=== PATIENT | male | born 1930 | race Caucasian/White ===

== ENCOUNTER → 2016-11-08 | Outpatient (CLI) | payer OTHER, MEDICARE | LOC: RAD 12:24 | DX: J44.9 Chronic obstructive pulmonary disease, unspecified (principal) ==

== ENCOUNTER → 2017-01-10 | Outpatient (CLI) | payer OTHER, MEDICARE | LOC: NUC 12-23 13:57 | DX: I25.10 Atherosclerotic heart disease of native coronary artery without angina pectoris (principal) ==

== ENCOUNTER → 2017-11-02 | Outpatient (CLI) | payer OTHER, MEDICARE ==
[~2017-11-02] VITALS: Ht 170.2 cm; Wt 68.0 kg
[~2017-11-02] MED LIST: ALIGN4 MG PO; ALLEGRA ALLERG180 MG PO; ALLOPURINOL 10100 M1 PO; ASPIR 8181 MG PO; CEFDINIR300 MG PO; CLOTRIMAZOLE10 MG PO; COMBIVENT RESPIM4 GM INH; DOXYCYCLINE 10100 MG PO; EUCERIN CALM I200 M1 TOP; FLAX SEED OIL1000 MG PO; FLUNISOLIDE25 ML NASAL; FORMOTEROL FUMAR1 GM PO; GLUCOSAMINE HC500 MG PO; KEFLEX250 MG PO; KETOROLAC 0.5% E5 ML OPHTHALMIC; LAMISIL250 MG PO; MAGOX 400400 MG PO; MIRALAX17 GM PO; NICOTINE TRANSD14 M1 TRANSDERM; NORVASC2.5 MG PO; OCUVITE TABLET1 EAC1 PO; PRAVACHOL40 MG PO; PREDNISONE 10 M10 MG PO; PRESERVISION A1 EAC2 PO; PRILOSEC 20 MG20 MG PO; PROAIR HFA8.5 GM INH; REMERON15 MG PO; SEA-OMEGA 30 C1 EACH PO; SENOKOT8.6 MG PO; SINGULAIR 10 MG10 M1 PO; STOOL SOFTENER100 M1 PO; SYSTANE 0.3-0.415 ML OPHTHALMIC; TEMOVATE15 GM TOP; TRAZODONE HCL50 MG PO; VITAMIN B-12500 MCG PO; VITAMIN D3400 UNIT PO; XALATAN2.5 ML OPHTHALMIC; ZANTAC 150MG T150 MG PO; ZOCOR20 MG PO; [UNRECOGNIZED DRUG - REMARK] PO
--- NOTE | ~2017-11-02 | P ---
[facility] [place] [address] PROCEDURE REPORT Name: ORQUIDEA RUELAS Room #: REG [facility].#: [id number] Admission: 11/02/17 Attend Phys: Felix Hill Discharge: Date of : 32 Report #: [id number] THIS REPORT FOR: //name// CC: Felix Boyce MD DATE OF SERVICE: 11/02/2017 PROCEDURE PERFORMED: Colonoscopy with biopsies. HISTORY OF PRESENT ILLNESS: The patient is an 86-year-old male with a history of anemia, recent drop in his hemoglobin. No obvious bright red blood per rectum or melena. Stool hemoccult testing x 1 is negative. Other Hemoccult testing is pending at this time. Upper endoscopy was just performed, which showed a mild gastritis, but no stigmata of bleeding. DESCRIPTION OF PROCEDURE: The risks and benefits of the procedure were explained to the patient, those risks including but not limited to bleeding, perforation, and the risk of sedation. He understood these risks and gave informed consent. Sedation was given using propofol per anesthesia. Next, a digital rectal exam was initially performed, which was normal. Next, using a standard Fujinon colonoscope, the scope was placed in the patient's anus and advanced under direct vision to the cecum. The overall prep was good. Cecum and ileocecal valve were normal in appearance. In the ascending colon, a 4 mm sessile polyp was noted. This was removed with cold forceps, otherwise normal. In the transverse colon, a 5 mm sessile polyp also removed with cold forceps. Multiple diverticula were noted throughout the descending and sigmoid colon. No evidence of inflammation or stigmata of recent bleeding. The rectal mucosa was normal. On retroflexion, small nonbleeding internal hemorrhoids were noted. The scope was then withdrawn and the procedure terminated. The patient tolerated the procedure well. IMPRESSION: 1. Two small colonic polyps. 2. Left-sided diverticulosis, no signs of bleeding. 3. Small internal hemorrhoids, no bleeding. 4. Otherwise, normal colonoscopy. RECOMMENDATIONS: 1. Await biopsy results. 2. There was no stigmata of bleeding on EGD or colonoscopy today. Recommend to finish a Hemoccult testing of stool. If negative and biopsies are negative for celiac disease, would consider Hematology consult at that point. If any of the stool Hemoccult testing is positive, we will consider M2 capsule. [address] [address] PROCEDURE REPORT Name: ORQUIDEA RUELAS ANEUDY Room #: REG [facility]#: [id number] Admission: 11/02/17 Attend Phys: Felix Hill Discharge: Date of : 32 Report #: [id number] Thank you for allowing me to participate in his care. <ELECTRONICALLY SIGNED> By: Felix Hewitt MD 11/04/17 0804 1141 1409 Felix Hewitt MD /iwona
--- NOTE | ~2017-11-02 | P ---
[facility] [place] [address] PROCEDURE REPORT Name: ORQUIDEA RUELAS Room #: REG [facility].#: [id number] Admission: 11/02/17 Attend Phys: Felix Hill Discharge: Date of : 32 Report #: [id number] THIS REPORT FOR: //name// CC: Felix Boyce MD DATE OF SERVICE: 11/02/2017 PROCEDURE PERFORMED: Upper endoscopy with biopsies and esophageal dilation. HISTORY OF PRESENT ILLNESS: The patient is an 86-year-old male with a history of anemia. Hemoccult testing of stool x 1 is negative; however, he has had a drop in his hemoglobin. No obvious bright red blood per rectum or melena. He does report dysphagia at times. He is taking PPI therapy for reflux, which is well controlled. Plan is for EGD and colonoscopy today. DESCRIPTION OF PROCEDURE: The risks and benefits of the procedure were explained to the patient. Those risks including but not limited to bleeding, perforation, the risk of sedation. He understood these risks and gave informed consent. Sedation was given using propofol per anesthesia. Next, using a standard True Officen upper endoscope, the scope was placed in the patient's mouth and advanced under direct vision through the esophagus, stomach and into the second portion of the duodenum. The esophagus was normal throughout. The GE junction was normal. There was a mild gastritis noted in the stomach. No evidence of erosions or ulcerations. No bleeding was noted throughout the exam today. Biopsies were obtained to rule out H. pylori. The pylorus was normal and patent. The duodenal bulb, first and second portion were all normal. Biopsies were also obtained to rule out the possibility of celiac sprue. The scope was then brought back up into the patient's stomach and a Savary guidewire was inserted through the scope, leaving the guidewire in place. Next, a 48-Spanish Savary dilation of the esophagus was then performed without difficulty. The wire and dilator removed. The scope was reintroduced into the patient's stomach. There was no evidence of mucosal tear after dilation. The scope was then withdrawn and the procedure terminated. The patient tolerated the procedure well. IMPRESSION: 1. Mild gastritis. 2. Otherwise, normal upper endoscopy. RECOMMENDATIONS: 1. Await biopsy results. 2. Observe patient post-dilation. 3. Continue PPI therapy. 4. We will proceed with colonoscopy next today. [address] [address] PROCEDURE REPORT Name: ORQUIDEA RUELAS Room #: REG [facility]atha#: [id number] Admission: 11/02/17 Attend Phys: Felix Hill Discharge: Date of : 32 Report #: [id number] Thank you for allowing me to participate in his care. <ELECTRONICALLY SIGNED> By: Felix Hewitt MD 11/04/17 0804 1114 1359 Felix Hewitt, /nt
--- NOTE | ~2017-11-02 | S ---
[facility] [place] [address] SURGICAL PATH RPT PROCEDURE Name: BRUNO RUELAS [id number] Admission: 11/02/17 Date of : 32 Discharge: Report #: [id number] Path Case #: [id number] PATHOLOGY REPORT COLLECTION DATE: 11/02/2017 RECEIVED DATE: 11/02/2017 SUBMITTING PHYS: Dr. Felix Hewitt OTHER PHYS: Dr. Manuel Boyce SPECIMEN(S) RECEIVED: A.Duodenum B.Gastritis C.Cecal polyp D.Transverse polyp * * * * * * * * * * * * FINAL DIAGNOSIS: A. Small bowel mucosa, duodenum, endoscopic biopsy: - Focal fundic-type metaplasia along with mild inflammation compatible with mild active peptic duodenitis. - Negative for villous blunting or increase in intraepithelial lymphocytes. B. Gastric mucosa, gastritis, endoscopic biopsy: - Mild chronic inflammation. - Negative for intestinal metaplasia or atrophy. - Negative for Helicobacter pylori. C. Polyp, at cecum, endoscopic biopsy: - Tubular adenoma. - Negative for high grade dysplasia. D. Polyp x 2, at transverse colon, endoscopic biopsy: - Tubular adenoma identified in two fragments. - Negative for high grade dysplasia. COMMENT: Well controlled Helicobacter pylori immunohistochemical stain performed on block B1 - negative. (IUV:db; 11/03/2017) PATHOLOGIST: Diane Pina M.D. REPORT ELECTRONICALLY SIGNED BY: Diane Pina M.D. DATE/TIME: 11/03/2017 14:51 * * * * * * * * * * * * GROSS PATHOLOGY: A. The specimen is received in formalin, labeled "Bruno Mercado, BX of duodenum" and consists of 4 soft rose tissue fragment [facility] [address] [place] [address] SURGICAL PATH RPT PROCEDURE Name: LULUBRUNO WILKS Room #: REG [facility].#: [id number] Admission: 11/02/17 Date of : 32 Discharge: Report #: [id number] Path Case #: [id number] ranging in size from 0.2 cm-0.4 cm. They are entirely submitted as A1. B. The specimen is received in formalin, labeled ""Bruno Mercado, BX of gastritis" and consists of 4 soft rose tissue fragments each averaging 0.3 cm. There are entirely submitted as B1. C. The specimen is received in formalin, labeled "Bruno Mercado, polyp at cecum" and consists of a 0.3 cm soft rose tissue fragment. Totally submitted as C1. D. The specimen is received in formalin, labeled "Bruno Mercado, polyp at transverse colon at 2" and consists of 2 soft rose tissue rings each averaging 0.2 cm. There are entirely submitted as D1. (DIOR; 11/02/2017) CLINICAL HISTORY: History anemia Dysphagia INITIAL CPT CODE(S): A; 56795 B; 15046, 06157 C; 23741 D; 99214 Professional services performed by [facility] at [facility] [address], [place] [address] Technical services performed by [facility] at [address] [place] [address], [facility] [address], [place] [address]. [facility] [address] [place] [address] PHONE: [phone] DIRECTOR: Matthew Parisi M.D. * * * END OF REPORT * * *
== END | disposition home or self-care (01) ==
LOC: GI 08:55
DX: D12.0 Benign neoplasm of cecum (principal); D12.3 Benign neoplasm of transverse colon; K29.50 Unspecified chronic gastritis without bleeding; K29.80 Duodenitis without bleeding; K57.30 Diverticulosis of large intestine without perforation or abscess without bleeding; K64.8 Other hemorrhoids; K21.9 Gastro-esophageal reflux disease without esophagitis; I10 Essential (primary) hypertension; J43.9 Emphysema, unspecified; I25.2 Old myocardial infarction; E78.5 Hyperlipidemia, unspecified; M10.9 Gout, unspecified; N40.0 Benign prostatic hyperplasia without lower urinary tract symptoms; Z85.46 Personal history of malignant neoplasm of prostate; Z98.890 Other specified postprocedural states; Z88.0 Allergy status to penicillin; Z87.891 Personal history of nicotine dependence; Z91.040 Latex allergy status; Z79.82 Long term (current) use of aspirin; Z79.899 Other long term (current) drug therapy
CPT/HCPCS: 62110; 62900

== ENCOUNTER 2018-05-16 14:07 | Inpatient (IN) | payer OTHER, MEDICARE ==
[~2018-05-16] VITALS: Ht 172.7 cm; Wt 71.0 kg
--- NOTE | ~2018-05-16 | HC ---
[facility] [place] [address] [place] [address] CONSULTATION Name: ORQUIDEA RUELAS Room #: 225-P ADM IN M.R.#: [id number] Admission: 05/16/18 Attend Phys: Arden Hirsch MD Discharge: Date of : 32 Report #: [id number] THIS REPORT FOR: //name// CC: Arden Boyce DATE OF SERVICE: 05/18/2018 REFERRING PHYSICIAN: Dr. Hirsch. REASON FOR REFERRAL: COPD. HISTORY OF PRESENT ILLNESS: The patient is an 87-year-old white male who presents to the Emergency Room complaining of weakness along with dyspnea. Chest x-ray on admission showed left-sided infiltrates. The patient was admitted. A pulmonary consultation was requested. The patient has normally followed in the pulmonary office by Dr. Veliz for COPD. He is felt to have severe pulmonary impairment. The patient has done fairly well over the past year. He has really not been hospitalized very much. He has also had increase in appetite and was able to gain some weight. PAST MEDICAL HISTORY: Notable for COPD, hypertension, gout, hyperlipidemia, chronic anemia, prostatic cancer, coronary artery disease with past history of myocardial infarction. PAST SURGICAL HISTORY: Notable for oral surgery, eye surgery along with TURP. ALLERGIES: AZITHROMYCIN WHICH CAUSES FACIAL SWELLING, ANAPHYLAXIS. LACTOSE CAUSED SIMILAR REACTIONS. LATEX CAUSES DYSPNEA AND RASH. MOXIFLOXACIN CAUSES FACIAL SWELLING AND ANAPHYLAXIS. PENICILLIN CAUSES SIMILAR REACTIONS. SIMVASTATIN CAUSES MUSCLE WEAKNESS. HOME MEDICATIONS: Include Xalatan, Remeron, Zyloprim, Flonase nasal spray, Pravachol, Zantac, Norvasc, nebulized albuterol. FAMILY HISTORY: Noncontributory. SOCIAL HISTORY: The patient has smoked, but quit many years ago. Denies any alcohol use. REVIEW OF SYSTEMS: As mentioned above, otherwise notable for moderate debility and weakness. [facility] [address] [place] [address] CONSULTATION Name: ORQUIDEA RUELAS Room #: 225-P [facility] IN [facility].#: [id number] Admission: 05/16/18 Attend Phys: Arden Hirsch MD Discharge: Date of : 32 Report #: [id number] PHYSICAL EXAMINATION: GENERAL: He is awake, alert, in no apparent distress. VITAL SIGNS: Temperature is 98 degrees Fahrenheit, pulse is 90, respiratory rate is 20, blood pressure 140/74 mmHg, saturation 92%. HEENT: Unremarkable. NECK: Supple. CHEST: Breath sounds are fair. Bilateral mild expiratory wheezes. Few scattered crackles in the bases. CARDIOVASCULAR: Normal S1, S2. There is no murmur or gallop. There is no JVD. There is no carotid bruit. Pulses are 2+/4+ bilaterally. ABDOMEN: Soft, nontender, no organomegaly or masses felt. GENITOURINARY: Deferred. RECTAL: Deferred. EXTREMITIES: There is no edema, cyanosis or clubbing. LABORATORY DATA: Chest x-ray shows left-sided infiltrates. Electrolytes: Sodium 140, potassium 5.0, chloride 109, CO2 is 19, BUN is 36, creatinine is 1.5. Liver enzymes are grossly unremarkable. WBC 7600, hemoglobin 11.4, platelets normal. Albumin 2.7. IMPRESSION: 1. Left-sided infiltrates, likely pneumonia. 2. Chronic obstructive pulmonary disease exacerbation. 3. Renal insufficiency. 4. Hypertension. 5. Coronary artery disease with past history of myocardial infarction. 6. Remote history of tobacco use. 7. Malnutrition, improved. Continue current care, bronchodilators, corticosteroids, and broad spectrum antibiotics. DVT and GI prophylaxis recommended. Thank you for this consultation. <ELECTRONICALLY SIGNED> By: Buddy Delgado MD 05/19/18 1830 1807 2333 Buddy Delgado MD /nt
--- NOTE | ~2018-05-16 | HC ---
[facility] [place] [address] CONSULTATION Name: ORQUIDEA RUELAS Room #: 225-P ADM IN M.R.#: [id number] Admission: 05/16/18 Attend Phys: Arden Hirsch MD Discharge: Date of : 32 Report #: [id number] THIS REPORT FOR: //name// CC: Arden Boyce DATE OF SERVICE: 05/17/2018 REASON FOR CONSULTATION: Evaluation regarding pneumonia, urinary tract infection. HISTORY OF PRESENT ILLNESS: The patient was an 87-year-old underlying history of bladder outlet obstruction requiring a suprapubic catheter last year. Resides at his home with the help of group home twice a week. In the last 4 days, he has had generalized weakness, fatigue associated with minimally productive cough. He denied any fever, chills or sweats. Some posttussive nausea without vomiting. No aspiration symptoms. No abdominal pain or diarrhea. He has had no cardiac issues. His last echocardiogram showed an EF of 55% in 2017. There has been no travel. He is a nonsmoker and no other recent exposures. Following his hospitalization yesterday, he has remained on 2 liters of oxygen per nasal cannula. Overall, feels somewhat improved. ALLERGIES: TO MULTIPLE DRUGS INCLUDING PENICILLIN, MOXIFLOXACIN, AZITHROMYCIN, LATEX, SIMVASTATIN AND LACTOSE. HE HAS BEEN ON CEPHALOSPORINS BEFORE IN 2017 WITHOUT REPORTED SIDE EFFECT. REVIEW OF SYSTEMS: He has had no weight loss or other recent infection issues. No skin lesions or rashes noted. No peripheral adenopathy noted. Cardiopulmonary as above with no increased peripheral edema. No neurologic issues. Denies any arthritis other than his baseline degenerative issues. Suprapubic catheter was exchanged last week. No allergic issues. No other hematologic issues noted. No psychiatric illnesses identified. MEDICATIONS: As noted on his OCT, having been started on meropenem. PAST MEDICAL HISTORY: Coronary artery disease status post OR, gout, hyperlipidemia, hypertension, anemia, BPH, prostate cancer, cleft palate repair, colonoscopy, gastroesophageal reflux, COPD, bilateral eye surgeries. FAMILY HISTORY: Hypertension, lung disease. SOCIAL HISTORY: Past smoker, no significant alcohol intake. PHYSICAL EXAMINATION: VITAL SIGNS: He is afebrile, hemodynamically stable. GENERAL: He was sitting up in his chair, alert, cooperative, conversant on [address] [place] [address] CONSULTATION Name: ORQUIDEA RUELASONY Room #: [address] [place] [address] IN M.R.#: [id number] Admission: 05/16/18 Attend Phys: Arden Hirsch MD Discharge: Date of : 32 Report #: [id number] liters of oxygen per nasal cannula. He was in no distress. SKIN: Without rash. LYMPHATIC: Without palpable adenopathy. HEENT: Eyes without conjunctival injection or scleral icterus. Mouth without oral lesion or mucositis. NECK: Supple, with no JVD, thyromegaly, or mass. LUNGS: Few crackles heard in the left base posteriorly without consolidation. HEART: Regular, without murmur, gallop or rub. ABDOMEN: Soft, nontender, no hepatosplenomegaly or mass appreciated. Suprapubic catheter site unremarkable. GENITOURINARY: External genitalia unremarkable with no masses, rash or ulcerations. EXTREMITIES: Without edema or cyanosis. NEUROLOGIC: Nonfocal with no cranial nerve abnormalities and strength throughout upper and lower extremities was normal. Mood was normal. LABORATORY STUDIES: Sodium 140, potassium 5, bicarbonate of 19, creatinine 1.5. Liver function test normal. Hemoglobin 11.4, platelet count 307,000, white count 7.6, 94% segs and 4% lymphs. Urinalysis with 16-25 wbc's, moderate bacteria. Blood and urine cultures are pending. Chest x-ray showed patchy pneumonia in the left lower lobe. IMAGING STUDIES: Reviewed. IMPRESSION: An 87-year-old with underlying coronary artery disease, chronic obstructive pulmonary disease, obstructive uropathy with suprapubic catheter, presents with decreased mental status and findings of a left lower lobe community-acquired pneumonia and catheter associated cystitis. He has multiple drug allergies. PLAN: Would recommend continuing IV antibiotic therapy with meropenem and screen for atypical organisms including legionella. Obtain sputum culture if the patient can produce. Follow up chest x-ray. Await urine culture and blood cultures. Continue to monitor urine output and supportive measures as needed. I have discussed with the patient's daughter at the bedside. <ELECTRONICALLY SIGNED> By: Augustine Hanson MD 05/19/18 1158 1241 1936 Augustine Hanson MD /nt
--- NOTE | ~2018-05-16 | EKG ---
[address] [address] ELECTROCARDIOGRAM REPORT Name: LULUHUEYJERELORQUIDEA Room #: 170-10 ADM IN M.R.#: [id number] Admission: 05/16/18 Attend Phys: Arden Hirsch MD Discharge: Date of : 32 Report #: [id number] THIS REPORT FOR: //name// [facility] ED Test Date: 2018-05-16 Test Time: 15:16:24 Pat Name: ORQUIDEA RUELAS Department: Room: 170 Gender: M Intake Man: joy : 1930 Requested By: Norman [place] Order Number: [id number] MD: Edgar Hurt Measurements Intervals [place] Rate: 74 P: 49 [place]: 161 QRS: -87 QRSD: 166 T: 3 QT: 414 QTc: 460 Interpretive Statements Sinus rhythm RBBB and LAFB Compared to ECG 05/31/2017 20:26:34 Left anterior fascicular block now present Right bundle-branch block now present Intraventricular conduction delay no longer present Myocardial infarct finding no longer present Electronically Signed On 05-16-2018 17:43:54 CDT by Edgar Hurt [email or web address] <ELECTRONICALLY SIGNED> By: Edgar Hurt MD 05/16/18 1743 1516 1516 Edgar Hurt MD /EPI
[~2018-05-16 14:07] MED LIST changes: -CEFDINIR300 MG PO; -CLOTRIMAZOLE10 MG PO; -DOXYCYCLINE 10100 MG PO; -MIRALAX17 GM PO; -PRAVACHOL40 MG PO; -PREDNISONE 10 M10 MG PO; -XALATAN2.5 ML OPHTHALMIC; -ZANTAC 150MG T150 MG PO
[2018-05-16 14:11] VITALS: BP 119/69
[2018-05-16] MEDS ORDERED: ZANTAC 150MG T150 MG PO (14:48)
[2018-05-16] MEDS ORDERED: PRAVACHOL40 MG PO (14:48)
[2018-05-16 15:14] LABS: ABSOLUTE NEUTROPHILS 6.9 thou/uL (1.4-8.2); BASOPHILS 0.9 % (0.0-2.0); EOSINOPHILS 1.3 % (0.0-3.0); HEMATOCRIT 38.4 % (42.0-52.0); HEMOGLOBIN 12.8 gm/dL (14.0-18.0); LYMPHOCYTES 11.7 % (24.0-44.0); MCH 31.5 pg (26.0-34.0); MCHC 33.3 g/dL (28.0-37.0); MCV 94.6 fL (80.0-100.0); MONOCYTES 8.1 % (1.0-8.0); PLATELET COUNT 290 thou/uL (150-400); RBC 4.06 mil/uL (4.50-6.00); RDW 15.8 % (10.5-14.5); WBC 8.9 thou/uL (4.0-11.0)
[2018-05-16 15:26] LABS: CALCIUM 10.4 mg/dL (8.5-10.1); CREATININE 1.7 mg/dL (0.7-1.3); POTASSIUM 4.9 mmol/L (3.5-5.1)
[2018-05-16 15:29] LABS: URINE BILIRUBIN NEGATIVE (Negative); URINE BLOOD 1+ (Negative); URINE CLARITY SL CLOUDY; URINE COLOR YELLOW; URINE GLUCOSE-RANDOM* NEGATIVE (Negative); URINE KETONES NEGATIVE (Negative); URINE LEUKOCYTES 3+ (Negative); URINE NITRITE POSITIVE (Negative); URINE PROTEIN (DIPSTICK) 1+ (Negative); URINE UROBILINOGEN 0.2 E.U./dl (0.2-1.0)
[2018-05-16 15:32] LABS: DIRECT BILIRUBIN 0.1 mg/dL (<0.1-0.3); TOTAL BILIRUBIN 0.4 mg/dL (<0.1-1.0); TOTAL PROTEIN 7.5 g/dL (6.4-8.2)
[2018-05-16 15:44] LABS: URINE RBC 3-10 Few /HPF (0-2)
[2018-05-16 15:45] LABS: CASTS None Seen /LPF (None Seen); CRYSTALS None Seen /LPF (None Seen); SQUAMOUS 0-3 Few /LPF (0-3)
[2018-05-16 17:58] VITALS: BP 148/63
[2018-05-16 19:34] VITALS: BP 155/71
[2018-05-16 19:48] VITALS: BP 128/59
[2018-05-16] MEDS ORDERED: XALATAN2.5 ML OPHTHALMIC (21:08)
[2018-05-16] MEDS ORDERED: REMERON15 MG PO (21:10)
[2018-05-17 05:35] LABS: ABSOLUTE NEUTROPHILS 7.1 thou/uL (1.4-8.2); BASOPHILS 0.1 % (0.0-2.0); HEMATOCRIT 34.7 % (42.0-52.0); HEMOGLOBIN 11.4 gm/dL (14.0-18.0); LYMPHOCYTES 4.8 % (24.0-44.0); MCH 31.1 pg (26.0-34.0); MCHC 32.8 g/dL (28.0-37.0); MCV 94.8 fL (80.0-100.0); MONOCYTES 0.9 % (1.0-8.0); PLATELET COUNT 307 thou/uL (150-400); POLYS 94.2 % (36.0-66.0); RBC 3.66 mil/uL (4.50-6.00); RDW 15.5 % (10.5-14.5); WBC 7.6 thou/uL (4.0-11.0)
[2018-05-17 05:49] LABS: ALBUMIN 2.7 g/dL (3.4-5.0); CALCIUM 9.3 mg/dL (8.5-10.1); CREATININE 1.5 mg/dL (0.7-1.3); TOTAL BILIRUBIN 0.3 mg/dL (<0.1-1.0); TOTAL PROTEIN 6.2 g/dL (6.4-8.2)
[2018-05-17 07:45] VITALS: BP 126/62
[2018-05-17 13:51] LABS: URINE BILIRUBIN NEGATIVE (Negative); URINE BLOOD NEGATIVE (Negative); URINE CLARITY CLEAR; URINE COLOR YELLOW; URINE GLUCOSE-RANDOM* NEGATIVE (Negative); URINE KETONES NEGATIVE (Negative); URINE PROTEIN (DIPSTICK) TRACE (Negative); URINE UROBILINOGEN 0.2 E.U./dl (0.2-1.0)
[2018-05-17 13:53] LABS: URINE LEUKOCYTES-REFLEX 1+ (Negative); URINE NITRITE-REFLEX POSITIVE (Negative)
[2018-05-17 13:59] LABS: SQUAMOUS None Seen /LPF (0-3)
[2018-05-17 14:00] LABS: BACTERIA-REFLEX >30 Many /HPF (None Seen); CASTS None Seen /LPF (None Seen); CRYSTALS None Seen /LPF (None Seen); URINE RBC None Seen /HPF (0-2); URINE WBC-REFLEX 0-5 Rare /HPF (0-5)
[2018-05-17 19:39] VITALS: BP 140/71
[2018-05-18 07:35] VITALS: BP 141/74
[2018-05-18 11:46] VITALS: BP 132/59
[2018-05-18 17:50] VITALS: BP 131/68
[2018-05-19 08:30] VITALS: BP 157/73
[2018-05-19 09:40] LABS: ABSOLUTE NEUTROPHILS 12.6 thou/uL (1.4-8.2); BASOPHILS 0.2 % (0.0-2.0); HEMATOCRIT 37.3 % (42.0-52.0); HEMOGLOBIN 12.3 gm/dL (14.0-18.0); LYMPHOCYTES 5.2 % (24.0-44.0); MCH 31.3 pg (26.0-34.0); MCHC 32.9 g/dL (28.0-37.0); MCV 95.1 fL (80.0-100.0); MONOCYTES 1.5 % (1.0-8.0); PLATELET COUNT 341 thou/uL (150-400); POLYS 93.1 % (36.0-66.0); RBC 3.92 mil/uL (4.50-6.00); RDW 15.6 % (10.5-14.5); WBC 13.6 thou/uL (4.0-11.0)
[2018-05-19 09:47] LABS: CALCIUM 10.6 mg/dL (8.5-10.1); CREATININE 1.4 mg/dL (0.7-1.3); POTASSIUM 5.5 mmol/L (3.5-5.1)
[2018-05-19 17:51] VITALS: BP 150/73
[2018-05-19 19:16] VITALS: BP 149/84
[2018-05-19 23:07] LABS: ADENOVIRUS Negative (Negative); INFLUENZA A Negative (Negative); INFLUENZA B Negative (Negative); METAPNEUMOVIRUS Negative (Negative); PARAINFLUENZA 1 Negative (Negative); PARAINFLUENZA 2 Negative (Negative); PARAINFLUENZA 3 Negative (Negative); RHINOVIRUS Negative (Negative); RSV A Negative (Negative); RSV B Negative (Negative)
[2018-05-20 07:39] VITALS: BP 165/85
[2018-05-20 10:54] LABS: ABSOLUTE NEUTROPHILS 13.4 thou/uL (1.4-8.2); BASOPHILS 0.3 % (0.0-2.0); EOSINOPHILS 0.1 % (0.0-3.0); HEMATOCRIT 37.8 % (42.0-52.0); HEMOGLOBIN 12.7 gm/dL (14.0-18.0); LYMPHOCYTES 6.6 % (24.0-44.0); MCH 31.8 pg (26.0-34.0); MCHC 33.5 g/dL (28.0-37.0); MCV 94.9 fL (80.0-100.0); MONOCYTES 3.7 % (1.0-8.0); PLATELET COUNT 377 thou/uL (150-400); POLYS 89.3 % (36.0-66.0); RBC 3.98 mil/uL (4.50-6.00); RDW 15.9 % (10.5-14.5)
[2018-05-20 11:08] LABS: CALCIUM 10.6 mg/dL (8.5-10.1); CREATININE 1.3 mg/dL (0.7-1.3); POTASSIUM 4.6 mmol/L (3.5-5.1)
[2018-05-20 19:48] VITALS: BP 155/82
[2018-05-21 07:46] LABS: HEMATOCRIT 37.9 % (42.0-52.0); HEMOGLOBIN 12.3 gm/dL (14.0-18.0); MCH 30.7 pg (26.0-34.0); MCHC 32.4 g/dL (28.0-37.0); MCV 94.9 fL (80.0-100.0); PLATELET COUNT 372 thou/uL (150-400); RBC 3.99 mil/uL (4.50-6.00); RDW 15.6 % (10.5-14.5); WBC 12.4 thou/uL (4.0-11.0)
[2018-05-21 08:14] LABS: ABSOLUTE NEUTROPHILS 9.5 thou/uL (1.4-8.2); PLATELET ESTIMATE NORMAL
[2018-05-21 08:23] VITALS: BP 141/71
[2018-05-21 20:51] VITALS: BP 132/74
[2018-05-22 07:31] LABS: ABSOLUTE NEUTROPHILS 10.7 thou/uL (1.4-8.2); BASOPHILS 0.1 % (0.0-2.0); EOSINOPHILS 0.5 % (0.0-3.0); HEMATOCRIT 34.3 % (42.0-52.0); HEMOGLOBIN 11.3 gm/dL (14.0-18.0); LYMPHOCYTES 16.7 % (24.0-44.0); MCHC 32.9 g/dL (28.0-37.0); MCV 94.1 fL (80.0-100.0); MONOCYTES 5.4 % (1.0-8.0); PLATELET COUNT 324 thou/uL (150-400); POLYS 77.3 % (36.0-66.0); RBC 3.64 mil/uL (4.50-6.00); RDW 15.6 % (10.5-14.5); WBC 13.8 thou/uL (4.0-11.0)
[2018-05-22 07:52] LABS: CALCIUM 9.7 mg/dL (8.5-10.1); CREATININE 1.4 mg/dL (0.7-1.3); POTASSIUM 4.4 mmol/L (3.5-5.1)
[2018-05-22 08:25] VITALS: BP 137/70
[2018-05-22] MEDS ORDERED: PREDNISONE 10 M10 MG PO (13:16)
[2018-05-22] MEDS ORDERED: MIRALAX17 GM PO (13:16)
[2018-05-22] MEDS ORDERED: CEFDINIR300 MG PO ×2 (13:16→13:58)
[2018-05-22 21:10] VITALS: BP 133/65
[2018-05-23 07:40] VITALS: BP 132/66
[2018-05-23] MEDS ORDERED: DOXYCYCLINE 10100 MG PO (09:07)
[2018-05-23 19:46] VITALS: BP 131/69
[2018-05-24] MEDS ORDERED: CLOTRIMAZOLE10 MG PO (12:51)
== END 2018-05-24 15:24 | disposition home health service (06) | DRG 698 ==
LOC: ER 14:07 → 4W 17:29 → EROBS 17:29 → 4W 19:31 → SICU 05-18 18:03 → ENTRNSPT 05-24 14:36 → EDTRNSPTSTS 05-24 15:00 → SICU 05-24 15:24
PROVIDERS: Family Medicine; Internal Medicine Infectious Disease; Nurse Practitioner; Specialist
PROC: 05HY33Z Insertion of Infusion Device into Upper Vein, Percutaneous Approach (ICD-10-PCS; principal; 2018-05-21)
DX: T83.518A Infection and inflammatory reaction due to other urinary catheter, initial encounter (principal); J18.1 Lobar pneumonia, unspecified organism; A41.9 Sepsis, unspecified organism; N17.9 Acute kidney failure, unspecified; J44.1 Chronic obstructive pulmonary disease with (acute) exacerbation; E46 Unspecified protein-calorie malnutrition; E86.0 Dehydration; Z66 Do not resuscitate; M10.9 Gout, unspecified; E78.5 Hyperlipidemia, unspecified; I10 Essential (primary) hypertension; H35.30 Unspecified macular degeneration; B37.9 Candidiasis, unspecified; M62.84 Sarcopenia; H54.8 Legal blindness, as defined in USA; H40.9 Unspecified glaucoma; T38.0X5A Adverse effect of glucocorticoids and synthetic analogues, initial encounter; K59.00 Constipation, unspecified; N30.90 Cystitis, unspecified without hematuria; Y84.6 Urinary catheterization as the cause of abnormal reaction of the patient, or of later complication, without mention of misadventure at the time of the procedure; I25.10 Atherosclerotic heart disease of native coronary artery without angina pectoris; I45.10 Unspecified right bundle-branch block; N13.9 Obstructive and reflux uropathy, unspecified; N40.1 Benign prostatic hyperplasia with lower urinary tract symptoms; K21.9 Gastro-esophageal reflux disease without esophagitis; F17.210 Nicotine dependence, cigarettes, uncomplicated; I25.2 Old myocardial infarction; Z68.23 Body mass index [BMI] 23.0-23.9, adult; Z85.46 Personal history of malignant neoplasm of prostate; Z90.79 Acquired absence of other genital organ(s); Z79.899 Other long term (current) drug therapy; Z88.0 Allergy status to penicillin; Z88.8 Allergy status to other drugs, medicaments and biological substances; Y92.89 Other specified places as the place of occurrence of the external cause; Z88.1 Allergy status to other antibiotic agents; Z91.040 Latex allergy status; Z82.49 Family history of ischemic heart disease and other diseases of the circulatory system; Z82.5 Family history of asthma and other chronic lower respiratory diseases
CPT/HCPCS: 10045; 15002; 27000

== ENCOUNTER 2018-05-26 15:25 | Emergency (ER) | payer OTHER, MEDICARE ==
[~2018-05-26] VITALS: Ht 175.3 cm; Wt 70.8 kg
--- NOTE | ~2018-05-26 | EKG ---
[place] [address] [facility] [place] [address] ELECTROCARDIOGRAM REPORT Name: ORQUIDEA RUELAS Room #: DEP [facility] [id number] Admission: 05/26/18 Attend Phys: Discharge: 05/26/18 Date of : 32 Report #: [id number] THIS REPORT FOR: //name// [facility] ED Test Date: 2018-05-26 Test Time: 15:52:15 Pat Name: ORQUIDEA RUELAS Department: Room: Gender: M Veterinary Receptionist: [employer] : 1930 Requested By: Sabine Frost Order Number: [id number] MD: Ed Oliveira Measurements Intervals [place] Rate: 72 P: 33 [place]: 164 QRS: -95 QRSD: 161 T: 12 QT: 419 QTc: 459 Interpretive Statements Sinus rhythm RBBB and LAFB Compared to ECG 05/16/2018 15:16:24 No significant changes Electronically Signed On 05-29-2018 8:19:21 CDT by Ed Oliveira [email or web address] <ELECTRONICALLY SIGNED> By: Ed Oliveira MD, [facility] 05/29/18 0819 155 155 Ed Oliveira MD, FACC /EPI
[~2018-05-26 15:25] MED LIST changes: +CEFDINIR300 MG PO; +CLOTRIMAZOLE10 MG PO; +DOXYCYCLINE 10100 MG PO; +MIRALAX17 GM PO; +PRAVACHOL40 MG PO; +PREDNISONE 10 M10 MG PO; +XALATAN2.5 ML OPHTHALMIC; +ZANTAC 150MG T150 MG PO
[2018-05-26 15:58] LABS: ABSOLUTE NEUTROPHILS 11.7 thou/uL (1.4-8.2); EOSINOPHILS 0.3 % (0.0-3.0); HEMATOCRIT 35.2 % (42.0-52.0); HEMOGLOBIN 11.8 gm/dL (14.0-18.0); LYMPHOCYTES 4.5 % (24.0-44.0); MCH 31.4 pg (26.0-34.0); MCHC 33.4 g/dL (28.0-37.0); MCV 94.1 fL (80.0-100.0); MONOCYTES 4.9 % (1.0-8.0); PLATELET COUNT 338 thou/uL (150-400); POLYS 90.3 % (36.0-66.0); RBC 3.74 mil/uL (4.50-6.00); WBC 12.9 thou/uL (4.0-11.0)
[2018-05-26 16:15] LABS: ANION GAP 8 mmol/L (7-16); BUN 40 mg/dL (7-18); CALCIUM 9.8 mg/dL (8.5-10.1); CHLORIDE 104 mmol/L (98-107); CO2 24 mmol/L (21-32); CREATININE 1.5 mg/dL (0.7-1.3); GLUCOSE 113 mg/dL (74-106); POTASSIUM 5.2 mmol/L (3.5-5.1); SODIUM 136 mmol/L (136-145)
[2018-05-26 16:21] LABS: ALBUMIN 2.8 g/dL (3.4-5.0); SALICYLATE 2.7 mg/dL (2.8-20.0); SGOT 18 U/L (15-37); SGPT 28 U/L (30-65); TOTAL BILIRUBIN 0.2 mg/dL (<0.1-1.0); TOTAL PROTEIN 6.6 g/dL (6.4-8.2)
[2018-05-26 16:42] LABS: URINE BILIRUBIN NEGATIVE (Negative); URINE BLOOD TRACE (Negative); URINE CLARITY CLEAR; URINE COLOR YELLOW; URINE GLUCOSE-RANDOM* NEGATIVE (Negative); URINE KETONES NEGATIVE (Negative); URINE LEUKOCYTES-REFLEX NEGATIVE (Negative); URINE NITRITE-REFLEX NEGATIVE (Negative); URINE PROTEIN (DIPSTICK) NEGATIVE (Negative); URINE SPECIFIC GRAVITY 1.015 (1.005-1.035); URINE UROBILINOGEN 0.2 E.U./dl (0.2-1.0)
[2018-05-26 16:50] LABS: AMP/METHAMP Negative (Negative); BARBITURATES Negative (Negative); BENZODIAZEPINES Negative (Negative); COCAINE Negative (Negative); METHADONE Negative (Negative); OPIATES Negative (Negative); PCP Negative (Negative)
== END 2018-05-26 18:04 | disposition home or self-care (01) ==
LOC: ER 15:25
PROVIDERS: Physician Assistant
DX: T46.1X1A Poisoning by calcium-channel blockers, accidental (unintentional), initial encounter (principal); T47.0X1A Poisoning by histamine H2-receptor blockers, accidental (unintentional), initial encounter; T38.0X1A Poisoning by glucocorticoids and synthetic analogues, accidental (unintentional), initial encounter; Y92.9 Unspecified place or not applicable; M10.9 Gout, unspecified; E78.5 Hyperlipidemia, unspecified; I10 Essential (primary) hypertension; J44.9 Chronic obstructive pulmonary disease, unspecified; N40.0 Benign prostatic hyperplasia without lower urinary tract symptoms; K21.9 Gastro-esophageal reflux disease without esophagitis; Z85.46 Personal history of malignant neoplasm of prostate; I25.2 Old myocardial infarction; F17.210 Nicotine dependence, cigarettes, uncomplicated; Z88.0 Allergy status to penicillin; Z88.1 Allergy status to other antibiotic agents; Z91.040 Latex allergy status; Z91.011 Allergy to milk products

== ENCOUNTER 2018-08-11 14:08 | Inpatient (IN) | payer OTHER, MEDICARE ==
[~2018-08-11] VITALS: Ht 175.3 cm; Wt 77.1 kg
[2018-08-11 14:33] VITALS: BP 126/51
[2018-08-11 15:53] LABS: BE(vivo) -6.9 mmol/L (-2 to +3); HCO3 16.8 mmol/L (22.0-26.0); PCO2 28.4 mmHg (35.0-45.0); PO2 60.4 mmHg (80.0-100.0); sO2 91.4 % (92.0-98.0)
[2018-08-11 16:34] LABS: ABSOLUTE NEUTROPHILS 4.4 thou/uL (1.4-8.2); BASOPHILS 1.3 % (0.0-2.0); HEMATOCRIT 37.2 % (42.0-52.0); HEMOGLOBIN 12.2 gm/dL (14.0-18.0); LYMPHOCYTES 22.6 % (24.0-44.0); MCH 30.7 pg (26.0-34.0); MCHC 32.8 g/dL (28.0-37.0); MCV 93.6 fL (80.0-100.0); MONOCYTES 11.1 % (1.0-8.0); PLATELET COUNT 235 thou/uL (150-400); RBC 3.97 mil/uL (4.50-6.00); WBC 7.1 thou/uL (4.0-11.0)
[2018-08-11 16:54] LABS: ANION GAP 8 mmol/L (7-16); BUN 32 mg/dL (7-18); CHLORIDE 106 mmol/L (98-107); CO2 21 mmol/L (21-32); CREATININE 1.5 mg/dL (0.7-1.3); GLUCOSE 91 mg/dL (74-106); POTASSIUM 4.4 mmol/L (3.5-5.1); SODIUM 135 mmol/L (136-145)
[2018-08-11 16:59] LABS: ALBUMIN 3.5 g/dL (3.4-5.0); SGOT 14 U/L (15-37); SGPT 14 U/L (30-65); TOTAL BILIRUBIN 0.3 mg/dL (<0.1-1.0); TOTAL PROTEIN 7.1 g/dL (6.4-8.2); TROPONIN-I <0.06 ng/mL (<0.06)
[2018-08-11 18:07] VITALS: BP 135/78
[2018-08-11 18:30] VITALS: BP 135/78
[2018-08-11 19:08] VITALS: BP 141/71
[2018-08-12 01:44] VITALS: BP 141/71
[2018-08-12 03:59] VITALS: BP 149/80
[2018-08-12 05:20] LABS: HEMATOCRIT 36.5 % (42.0-52.0); HEMOGLOBIN 11.9 gm/dL (14.0-18.0); MCH 30.4 pg (26.0-34.0); MCHC 32.6 g/dL (28.0-37.0); MCV 93.3 fL (80.0-100.0); RBC 3.92 mil/uL (4.50-6.00); RDW 17.7 % (10.5-14.5); WBC 3.4 thou/uL (4.0-11.0)
[2018-08-12 05:37] LABS: CALCIUM 10.1 mg/dL (8.5-10.1); CREATININE 1.3 mg/dL (0.7-1.3); POTASSIUM 4.5 mmol/L (3.5-5.1)
[2018-08-12 07:50] VITALS: BP 143/67
[2018-08-12 20:02] VITALS: BP 142/76
[2018-08-13 08:20] VITALS: BP 147/68
[2018-08-13 20:55] VITALS: BP 119/65
--- NOTE | 2018-08-13 21:48 | EKG ---
[address] [address] ELECTROCARDIOGRAM REPORT Name: SURAJORQUIDEA AMADO Room #: 224-P ADM IN M.R.#: [id number] Admission: 08/11/18 Attend Phys: Yazan Zarco MD Discharge: Date of : 32 Report #: [id number] THIS REPORT FOR: //name// [facility] ED Test Date: 2018-08-11 Test Time: 15:22:40 Pat Name: ORQUIDEA RUELAS Department: Room: 224 Gender: M Clipper Automatic: shelley : 1930 Requested By: Sabine Frost Order Number: [id number] MD: Edgar Hurt Measurements Intervals [place] Rate: 59 P: -11 KS: 157 QRS: -96 QRSD: 165 T: -6 QT: 445 QTc: 441 Interpretive Statements Sinus rhythm RBBB and LAFB Compared to ECG 05/26/2018 15:52:15 No significant changes Electronically Signed On 08-13-2018 21:48:14 PAPER MACHINE SUPERVISOR by Edgar Hurt [email or web address] <ELECTRONICALLY SIGNED> By: Edgar Hurt MD 08/13/18 2148 1522 1522 Edgar Hurt MD /EPI
[2018-08-14 08:02] VITALS: BP 153/83
[2018-08-14] MEDS ORDERED: PREDNISONE 10 M10 MG PO (09:09)
[2018-08-14 09:32] VITALS: BP 153/83
== END 2018-08-14 10:57 | disposition home or self-care (01) | DRG 871 ==
LOC: ER 14:08 → EROBS 17:46 → SICU 17:46 → 3W 18:33 → SICU 08-12 17:38 → ENTRNSPT 08-14 10:28 → EDTRNSPTSTS 08-14 10:30 → SICU 08-14 10:57
PROVIDERS: Physician Assistant; ADMIT Hospitalist
DX: A41.9 Sepsis, unspecified organism (principal); J96.01 Acute respiratory failure with hypoxia; N17.9 Acute kidney failure, unspecified; E87.1 Hypo-osmolality and hyponatremia; J44.1 Chronic obstructive pulmonary disease with (acute) exacerbation; J20.9 Acute bronchitis, unspecified; M10.9 Gout, unspecified; E78.5 Hyperlipidemia, unspecified; I10 Essential (primary) hypertension; N40.0 Benign prostatic hyperplasia without lower urinary tract symptoms; K21.9 Gastro-esophageal reflux disease without esophagitis; D72.819 Decreased white blood cell count, unspecified; Z85.46 Personal history of malignant neoplasm of prostate; Z90.79 Acquired absence of other genital organ(s); I25.2 Old myocardial infarction; Z79.899 Other long term (current) drug therapy; Z87.891 Personal history of nicotine dependence; Z88.0 Allergy status to penicillin; Z88.8 Allergy status to other drugs, medicaments and biological substances; Z88.1 Allergy status to other antibiotic agents; Z91.040 Latex allergy status; Z82.49 Family history of ischemic heart disease and other diseases of the circulatory system; Z83.6 Family history of other diseases of the respiratory system
CPT/HCPCS: 10879; 15000; 15002

== ENCOUNTER → 2019-02-14 | Outpatient (CLI) | payer OTHER, MEDICARE | LOC: RAD 12:07 | DX: J98.4 Other disorders of lung (principal); J44.9 Chronic obstructive pulmonary disease, unspecified; I77.810 Thoracic aortic ectasia; Z88.2 Allergy status to sulfonamides; Z88.0 Allergy status to penicillin; Z88.8 Allergy status to other drugs, medicaments and biological substances; Z91.040 Latex allergy status ==

== ENCOUNTER → 2019-03-26 | Outpatient (CLI) | payer OTHER, MEDICARE | LOC: NUC 11:46 | DX: I25.10 Atherosclerotic heart disease of native coronary artery without angina pectoris (principal); I25.2 Old myocardial infarction; E78.5 Hyperlipidemia, unspecified; I10 Essential (primary) hypertension; Z87.891 Personal history of nicotine dependence; Z79.2 Long term (current) use of antibiotics; Z88.0 Allergy status to penicillin; Z88.1 Allergy status to other antibiotic agents; Z88.8 Allergy status to other drugs, medicaments and biological substances; Z91.040 Latex allergy status ==

== ENCOUNTER → 2019-03-28 | Outpatient (CLI) | payer OTHER, MEDICARE ==
[~2019-03-28] VITALS: Ht 170.2 cm; Wt 76.2 kg
[2019-03-28 10:14] VITALS: BP 159/66
[2019-03-28 10:18] LABS: HEMATOCRIT 36.4 % (42.0-52.0); MCH 31.7 pg (26.0-34.0); MCV 96.1 fL (80.0-100.0); RBC 3.79 mil/uL (4.50-6.00); RDW 16.4 % (10.5-14.5); WBC 7.4 thou/uL (4.0-11.0)
[2019-03-28 10:28] LABS: CALCIUM 9.9 mg/dL (8.5-10.1); CREATININE 1.6 mg/dL (0.7-1.3); POTASSIUM 4.3 mmol/L (3.5-5.1)
--- NOTE | 2019-03-28 13:25 | EKG ---
[place] [address] [facility] [place] [address] ELECTROCARDIOGRAM REPORT Name: OR[facility]IDEA RUELAS [id number] Admission: 03/28/19 Attend Phys: Ernie Keita MD Discharge: Date of : 32 Report #: [id number] THIS REPORT FOR: //name// [facility] Test Date: 2019-03-28 Test Time: 10:15:26 Pat Name: ORQUIDEA RUELAS Department: Room: Gender: Charge Account Authorizer: STARLING. Lee : 1930 Requested By: Enrie Keita Order Number: [id number] MD: Ed Oliveira Measurements Intervals [place] Rate: 55 P: 61 [place]: 175 QRS: -90 QRSD: 171 T: 19 QT: 491 QTc: 470 Interpretive Statements Sinus rhythm RBBB and LAFB Compared to ECG 08/11/2018 15:22:40 No significant changes Electronically Signed On 03-28-2019 13:25:27 CDT by Ed Oliveira [email or web address] <ELECTRONICALLY SIGNED> By: Ed Oliveira MD, [facility] 03/28/19 1325 1015 1015 Ed Oliveira MD, FAC /EPI
--- NOTE | 2019-03-28 15:03 | NUR ---
PT OFF OF BEDREST, FLUIDS TO RUN FOR ONE MORE HOUR, PER MD JULIEN.
--- NOTE | 2019-03-28 16:06 | CATHLAB ---
[facility] [address] [place] [address] INVASIVE PROCEDURE REPORT Name: ORQUIDEA RUELAS Room #: REG [facility]#: [id number] Admission: 03/28/19 Attend Phys: Ernie Keita MD Discharge: Date of : 34 Date of Service: 03/28/19 1606 Report #: [id number] THIS REPORT FOR: //name// APPROVED REPORT Study performed: 03/28/2019 10:16:12 Patient Details Patient Status: Out-Patient Room #: The patient is a 88 year-old male Event Personnel Ernie Keita Aluminum Siding Installer, Acosta Branham RN RN, Kelly Eagle RTR, Filemon Ramirez Sherra RTR Monitor Procedures Performed Art Access - R femoral artery* Left Heart Cath w/or w/o Coronaries [id number] [facility] [id number] Initial Mod Sed Same Phys/QHP Gr [id number] Mod Sed Same Phys/QHP Ea [id number] Hemostasis with Manual pressure Indication Dyspnea, Positive stress test, Chest pain Risk Factors Hypercholesterolemia, Coronary Artery DiseaseHypertension Procedure Narrative The Right Groin^ was infiltrated with 1% Lidocaine subcutaneous anesthesia. A PINNACLE 4FR Sheath #[id number] sheath was inserted into the RFA^. Coronary angiography was performed using coronary diagnostic catheters. The right coronary system was accessed and visualized with a JR4 catheter. The left coronary system was accessed and visualized with a JL5 catheter. The left ventricle was accessed and visualized with a pigtail catheter. Left ventricular/Aortic Valve gradient assessed via catheter pullback. Hemostasis was obtained with manual pressure following sheath removal without any complications. The patient tolerated the procedure well and there were no complications associated with the procedure. There was no hematoma. Intraoperative Conscious Sedation Sedation start time: 12:24 Case end Time: 12:55 Fentanyl 100 mcg Versed 2 mg [facility] [place] [address] INVASIVE PROCEDURE REPORT Name: ORQUIDEA RUELAS Room #: REG [facility]..#: [id number] Admission: 03/28/19 Attend Phys: Ernie Keita MD Discharge: Date of : 34 Date of Service: 03/28/19 1606 Report #: [id number] Fluoro Time: 5.05 minutes Dose: DAP 5912.9 cGycm2 592 mGy Contrast Type and Amount: Visipaque 50 ml Coronary Angiography The patient's coronary anatomy is right dominant. Diagnostic Cath Left Main This is a large caliber vessel, with mild disease in the distal segment, 20%. LAD This is a moderate size caliber vessel, traversing the anterior wall and wrapping around the apex. The proximal segment is calcified with mild disease, 20%. Diagonal 1 This is a moderate size caliber vessel with minimal plaquing proximally. Circumflex There is a mild stenosis in the proximal segment, 30%. OM1 There is a small-caliber vessel, patent with no flow-limiting lesions. Right Coronary This is a dominant vessel with calcifications in the proximal and mid segments. There is a mild to moderate stenosis in the mid segment, 40%. R PDA This is a moderate size caliber vessel, patent with no flow-limiting lesions. RPLV This is a moderate size caliber vessel, patent with no flow-limiting lesions. Left Ventriculography Left Ventriculography was not performed. An LVEDP was measured and there is no gradient across the outflow tract. Hemodynamics The aortic pressure is 177/70 mmHg with a mean of 112 mmHg. The left ventricular pressure is 165/11 mmHg with a mean of mmHg. The left ventricular end diastolic pressure is 19 mmHg. Conclusion 1. Nonobstructive coronary artery disease. 2. Right dominant system. 3. Normal LV systolic function. 4. Recommend aggressive risk factor management. <ELECTRONICALLY SIGNED> By: Ernie Keita MD 03/28/19 1606 1606 1606 Ernie Keita MD /INF
== END | disposition home or self-care (01) ==
LOC: CATH 09:25
PROVIDERS: Internal Medicine Cardiovascular Disease
DX: I25.10 Atherosclerotic heart disease of native coronary artery without angina pectoris (principal); I10 Essential (primary) hypertension; E78.00 Pure hypercholesterolemia, unspecified; E78.5 Hyperlipidemia, unspecified; K21.9 Gastro-esophageal reflux disease without esophagitis; J44.9 Chronic obstructive pulmonary disease, unspecified; Z82.49 Family history of ischemic heart disease and other diseases of the circulatory system; Z98.890 Other specified postprocedural states; Z87.891 Personal history of nicotine dependence; Z85.46 Personal history of malignant neoplasm of prostate; Z85.828 Personal history of other malignant neoplasm of skin; Z79.899 Other long term (current) drug therapy; Z88.0 Allergy status to penicillin; Z88.2 Allergy status to sulfonamides; Z88.8 Allergy status to other drugs, medicaments and biological substances; Z91.040 Latex allergy status

== ENCOUNTER 2019-04-03 14:07 | Emergency (ER) | payer OTHER, MEDICARE ==
[~2019-04-03] VITALS: Ht 172.7 cm; Wt 74.8 kg
[2019-04-03 14:08] VITALS: BP 113/59
[2019-04-03 15:28] LABS: ABSOLUTE NEUTROPHILS 4.7 thou/uL (1.4-8.2); BASOPHILS 0.8 % (0.0-2.0); EOSINOPHILS 5.3 % (0.0-3.0); HEMATOCRIT 35.3 % (42.0-52.0); HEMOGLOBIN 11.6 gm/dL (14.0-18.0); LYMPHOCYTES 16.9 % (24.0-44.0); MCH 31.7 pg (26.0-34.0); MONOCYTES 5.7 % (1.0-8.0); PLATELET COUNT 253 thou/uL (150-400); POLYS 71.3 % (36.0-66.0); RBC 3.67 mil/uL (4.50-6.00); RDW 16.1 % (10.5-14.5); WBC 6.6 thou/uL (4.0-11.0)
[2019-04-03 15:34] LABS: CALCIUM 9.5 mg/dL (8.5-10.1); CREATININE 1.4 mg/dL (0.7-1.3); POTASSIUM 4.8 mmol/L (3.5-5.1)
[2019-04-03 15:40] LABS: ALBUMIN 3.4 g/dL (3.4-5.0); TOTAL BILIRUBIN 0.3 mg/dL (<0.1-1.0); TOTAL PROTEIN 6.8 g/dL (6.4-8.2)
[2019-04-03 15:42] LABS: PROTIME 9.7 Seconds (9.3-11.4)
[2019-04-03 16:47] LABS: URINE BILIRUBIN NEGATIVE (Negative); URINE BLOOD NEGATIVE (Negative); URINE CLARITY CLEAR; URINE COLOR YELLOW; URINE GLUCOSE-RANDOM* NEGATIVE (Negative); URINE KETONES NEGATIVE (Negative); URINE PROTEIN (DIPSTICK) NEGATIVE (Negative); URINE SPECIFIC GRAVITY <= 1.005 (1.005-1.035); URINE UROBILINOGEN 0.2 E.U./dl (0.2-1.0)
[2019-04-03 16:48] LABS: URINE LEUKOCYTES-REFLEX 2+ (Negative); URINE NITRITE-REFLEX POSITIVE (Negative)
[2019-04-03 16:56] LABS: CASTS None Seen /LPF (None Seen); CRYSTALS None Seen /LPF (None Seen); SQUAMOUS 0-3 Few /LPF (0-3); URINE RBC 0-2 Rare /HPF (0-2)
[2019-04-03 16:57] LABS: URINE WBC-REFLEX 6-15 Few /HPF (0-5)
[2019-04-03] MEDS ORDERED: BACTRIM DS TAB1 EACH PO (17:05)
== END 2019-04-03 17:30 | disposition home or self-care (01) ==
LOC: ER 14:07
PROVIDERS: Emergency Medicine
DX: N39.0 Urinary tract infection, site not specified (principal); N43.3 Hydrocele, unspecified; F17.210 Nicotine dependence, cigarettes, uncomplicated; J44.9 Chronic obstructive pulmonary disease, unspecified; F03.90 Unspecified dementia, unspecified severity, without behavioral disturbance, psychotic disturbance, mood disturbance, and anxiety; K21.9 Gastro-esophageal reflux disease without esophagitis; I10 Essential (primary) hypertension; E78.00 Pure hypercholesterolemia, unspecified; Z85.46 Personal history of malignant neoplasm of prostate; Z85.828 Personal history of other malignant neoplasm of skin; Z88.1 Allergy status to other antibiotic agents; Z91.040 Latex allergy status; Z88.0 Allergy status to penicillin; Z88.6 Allergy status to analgesic agent